=== PATIENT | female | born 1970 | race Caucasian/White ===

== ENCOUNTER 2018-07-24 12:44 | Emergency (ER) | payer MEDICAID, OTHER ==
--- NOTE | 2018-07-24 13:01 | ERPHSYRPT ---
- History of Present Illness Time Seen by Provider: 07/24/18 12:58 Source: patient Exam Limitations: no limitations Patient Subjective Stated Complaint: Pt states "thursday I had this bump come upon my chin and then another one in my neck, kind of like a cluster. IT really hurt on thu and and the pain has seemed to have backed off but it is getting black." Triage Nursing Assessment: Pt presented alert and oriented X 3, skin pwd pt ambulates with an upright steady gait, able to speak in clear full sentences. PT in no apparent respiratory distress. PT has small swollen area on chin. Physician History: Pt states "Thursday I had this bump come upon my chin and then another one in my neck, kind of like a cluster. IT really hurt on thu and and the pain has seemed to have backed off but it is getting black." Timing/Duration: day(s) Location: face Possible Causes: no cause identified Allergies/Adverse Reactions: No Known Drug Allergies Allergy (Unverified 07/24/18 12:54) Home Medications: Bupropion HCl [Wellbutrin Xl] 300 mg PO DAILY 07/24/18 [History] Hctz/Triamterene 25/37.5 mg [Maxzide 25MG] 07/24/18 [History] Omeprazole 20 mg PO DAILY 07/24/18 [History] Hx Tetanus, Diphtheria Vaccination/Date Given: No Hx Influenza Vaccination/Date Given: No Hx Pneumococcal Vaccination/Date Given: No Immunizations Up to Date: Yes - Review of Systems Constitutional: No Fever, No Chills Eyes: No Symptoms Ears, Nose, & Throat: No Symptoms Respiratory: No Cough, No Dyspnea Cardiac: No Chest Pain, No Edema, No Syncope Abdominal/Gastrointestinal: No Abdominal Pain, No Nausea, No Vomiting, No Diarrhea Genitourinary Symptoms: No Dysuria Musculoskeletal: No Back Pain, No Neck Pain Skin: Induration (chin area), No Rash Neurological: No Dizziness, No Focal Weakness, No Sensory Changes Psychological: No Symptoms Endocrine: No Symptoms All Other Systems: Reviewed and Negative - Past Medical History Pertinent Past Medical History: Yes Cardiac History: Hypertension GI Medical History: GERD Psycho-Social History: Depression - Past Surgical History Past Surgical History: Yes Other Surgical History: laproscopic. kade - Social History Smoking Status: Never smoker Exposure to second hand smoke: Yes Drug Use: none Patient Lives Alone: No - Female History Hx Last Menstrual Period: 07/17/2018 Hx Now: No - Nursing Vital Signs Nursing Vital Signs: Initial Vital Signs Temperature 98.6 F 07/24/18 12:48 Pulse Rate 80 07/24/18 12:48 Respiratory Rate 18 07/24/18 12:48 Blood Pressure 137/83 07/24/18 12:48 O2 Sat by Pulse Oximetry 100 07/24/18 12:48 Pain Scale Pain Intensity 5 - Physical Exam General Appearance: no apparent distress, alert Eye Exam: PERRL/EOMI, eyes nml inspection Ears, Nose, Throat Exam: normal ENT inspection, pharynx normal, moist mucous membranes Neck Exam: normal inspection, non-tender, supple, full range of motion Respiratory Exam: normal breath sounds, lungs clear, No respiratory distress Cardiovascular Exam: regular rate/rhythm, normal heart sounds Gastrointestinal/Abdomen Exam: soft, mass, No tenderness Back Exam: No CVA tenderness, No vertebral tenderness Neurologic Exam: alert, oriented x 3, cooperative, normal mood/affect, sensation nml, No motor deficits Skin Exam: normal color, warm, dry, other (indurated area under chin) SpO2: 100 - Course Nursing assessment & vital signs reviewed: Yes - Progress Progress: unchanged Counseled pt/family regarding: diagnosis, need for follow-up - Departure Departure Disposition: Home Clinical Impression: Impetigo, unspecified Condition: Stable Critical Care Time: No Referrals: QUEENIE PACHECO [Primary Care Provider] - Instructions: Folliculitis (DC), Impetigo (DC) Prescriptions: Smz/Tmp Ds Tablet [Bactrim Ds Tablet] 1 udtab PO BID #20 tablet
[2018-07-24 13:14] VITALS: BP 134/76; PULSE 76; O2SAT 98
== END 2018-07-24 13:14 | disposition home or self-care (01) ==
LOC: ED 12:44
DX: L01.00 Impetigo, unspecified (principal); K21.9 Gastro-esophageal reflux disease without esophagitis; F32.9 Major depressive disorder, single episode, unspecified
CPT/HCPCS: 99283